=== PATIENT | male | born 1985 | race Caucasian/White ===

== ENCOUNTER 2018-05-14 16:06 | Emergency (ER) | payer OTHER ==
[~2018-05-14] VITALS: Ht 180.3 cm; Wt 70.5 kg
[2018-05-14 16:17] VITALS: Ht 180.3 cm; Wt 70.5 kg
[2018-05-14] MEDS ORDERED: TYLENOL W/CODEI1 TAB PO (21:36)
[2018-05-14] MEDS ORDERED: VOLTAREN75 MG PO (21:36)
[2018-05-14 22:05] VITALS: BP 124/75
== END 2018-05-14 22:06 | disposition home or self-care (01) ==
LOC: D.ER 16:06
DX: S22.32XA Fracture of one rib, left side, initial encounter for closed fracture (principal); X58.XXXA Exposure to other specified factors, initial encounter; Y93.89 Activity, other specified; Y92.019 Unspecified place in single-family (private) house as the place of occurrence of the external cause

== ENCOUNTER 2018-06-23 07:02 | Emergency (ER) | payer OTHER ==
[~2018-06-23] VITALS: Ht 177.8 cm; Wt 68.2 kg
[~2018-06-23 07:02] MED LIST: TYLENOL W/CODEI1 TAB PO; VOLTAREN75 MG PO
[2018-06-23 07:06] VITALS: Ht 177.8 cm; Wt 68.2 kg
[2018-06-23] MEDS ORDERED: HYDROCODON-ACE1 EAC2 PO (08:14)
[2018-06-23 08:37] VITALS: BP 127/81
== END 2018-06-23 08:50 | disposition home or self-care (01) ==
LOC: D.ER 07:02
DX: M79.18 Myalgia, other site (principal); V49.9XXA Car occupant (driver) (passenger) injured in unspecified traffic accident, initial encounter; Y93.89 Activity, other specified; Y92.89 Other specified places as the place of occurrence of the external cause; F17.200 Nicotine dependence, unspecified, uncomplicated